=== PATIENT | male | born 1990 | race Two or more races ===

== ENCOUNTER 2019-11-14 12:38 | Emergency (ER) | payer SELFPAY ==
[~2019-11-14] VITALS: Ht 177.8 cm; Wt 77.1 kg
[2019-11-14 12:54] VITALS: BP 139/99
== END 2019-11-14 13:31 | disposition home or self-care (01) ==
LOC: ER 12:38
DX: S00.83XA Contusion of other part of head, initial encounter (principal); V29.9XXA Motorcycle rider (driver) (passenger) injured in unspecified traffic accident, initial encounter; Y93.89 Activity, other specified; Y92.89 Other specified places as the place of occurrence of the external cause; Y99.8 Other external cause status

== ENCOUNTER 2022-12-12 16:51 | Emergency (ER) | payer MEDICAID, OTHER | END 2022-12-12 18:10 | disposition left against medical advice (07) | LOC: ER 16:53 | DX: M79.89 Other specified soft tissue disorders (principal); Z53.21 Procedure and treatment not carried out due to patient leaving prior to being seen by health care provider ==